=== PATIENT | female | born 1985 | race Caucasian/White ===

== ENCOUNTER → 2019-07-19 11:39 | Outpatient (CLI) | payer OTHER, SELFPAY ==
[2019-06-02 06:13] VITALS: BMI 38.2
[2019-07-19 10:42] VITALS: BMI 37.6
[2019-07-19 11:53] LABS: Mucous, Urine 0 SEEN /hpf (<or=2+); Red Blood Cells-Urine 0 SEEN /hpf (0-5)
[2019-07-19 13:42] LABS: Color, Urine Yellow (Yellow)
[2019-07-19 13:43] LABS: Glucose, Dipstick NEGATIVE (Normal); Ketone-Dipstick Negative (Negative); Leukocyte Esterase-Dipstick 25 /ul (Negative); Nitrite-Dipstick Negative (Negative); Occult Blood-Urine 10 /ul (Negative); Protein-Dipstick 15 mg/dl (Negative); Urine Bilirubin Dipstick Negative (Negative); Urine Clarity Sl Cldy (Clear); Urine Urobilinogen Normal (Normal); Urine pH 6.5 (5.0 - 8.0)
[2019-07-19 13:56] LABS: Bacteria 2+ /hpf (None Seen); Squamous Epithelial Cells - UA 5-10 SEEN /hpf (5-10); White Blood Cells 0-5 SEEN /hpf (0-5)
[2019-07-19 14:03] LABS: Erythrocyte Sedimentation Rate 21 mm/hr (0-20)
[2019-07-19 14:10] LABS: Vitamin D,25 Hydroxy 20.2 ng/mL (29.95-100.01)
[2019-07-19 14:13] LABS: T4 Free Direct 0.88 ng/dL (0.76-1.46)
== END ==
LOC: LAB.FUTURE 01-19 00:33 → BFHLAB 06-08 16:14
PROVIDERS: Family Provider Family Medicine; PCP Family Medicine; Referring Provider Family Medicine; Visit Provider Family Medicine
DX: Z00.01 Encounter for general adult medical examination with abnormal findings (principal); M32.9 Systemic lupus erythematosus, unspecified; R53.83 Other fatigue
CPT/HCPCS: 36415; 81001; 82306; 84439; 84443; 85652

== ENCOUNTER 2020-08-01 11:51 | Outpatient (RCR) | payer OTHER, SELFPAY ==
[2019-09-19 10:29] VITALS: BMI 37.6
== END 2020-08-15 23:59 ==
LOC: EMPH 11:51
PROVIDERS: PCP Family Medicine; Visit Provider Family Medicine Geriatric Medicine
DX: Z11.59 Encounter for screening for other viral diseases (principal)
CPT/HCPCS: 87635; U0003

== ENCOUNTER 2020-09-13 08:27 | Outpatient (RCR) | payer OTHER, SELFPAY ==
[2019-09-19 10:29] VITALS: BMI 37.6
== END 2020-09-15 23:59 ==
LOC: EMPH 08:27
PROVIDERS: PCP Family Medicine; Visit Provider Family Medicine Geriatric Medicine
DX: Z03.818 Encounter for observation for suspected exposure to other biological agents ruled out (principal)
CPT/HCPCS: 87426

== ENCOUNTER 2020-10-10 07:31 | Outpatient (RCR) | payer OTHER, SELFPAY ==
[2019-09-19 10:29] VITALS: BMI 37.6
== END 2020-10-15 23:59 ==
LOC: EMPH 07:31
PROVIDERS: PCP Family Medicine; Visit Provider Family Medicine Geriatric Medicine
DX: Z03.818 Encounter for observation for suspected exposure to other biological agents ruled out (principal)
CPT/HCPCS: 87426

== ENCOUNTER 2020-11-14 14:35 | Outpatient (RCR) | payer OTHER, SELFPAY ==
[2019-09-19 10:29] VITALS: BMI 37.6
== END 2020-11-15 23:59 ==
LOC: EMPH 14:35
PROVIDERS: PCP Family Medicine; Visit Provider Family Medicine Geriatric Medicine
DX: Z03.818 Encounter for observation for suspected exposure to other biological agents ruled out (principal)
CPT/HCPCS: 87426

== ENCOUNTER 2020-12-14 14:12 | Outpatient (RCR) | payer OTHER, SELFPAY ==
[2019-09-19 10:29] VITALS: BMI 37.6
== END 2020-12-16 23:59 ==
LOC: EMPH 14:12
PROVIDERS: PCP Family Medicine; Referring Provider Family Medicine Geriatric Medicine; Visit Provider Family Medicine Geriatric Medicine
DX: Z03.818 Encounter for observation for suspected exposure to other biological agents ruled out (principal)
CPT/HCPCS: 87426

== ENCOUNTER 2021-01-11 14:52 | Outpatient (RCR) | payer OTHER, SELFPAY ==
[2019-09-19 10:29] VITALS: BMI 37.6
== END 2021-01-13 23:59 ==
LOC: EMPH 14:52
PROVIDERS: PCP Family Medicine; Referring Provider Family Medicine Geriatric Medicine; Visit Provider Family Medicine Geriatric Medicine
DX: Z03.818 Encounter for observation for suspected exposure to other biological agents ruled out (principal)
CPT/HCPCS: 87426

== ENCOUNTER 2021-02-06 14:05 | Outpatient (RCR) | payer OTHER, SELFPAY ==
[2019-09-19 10:29] VITALS: BMI 37.6
== END 2021-02-13 23:59 ==
LOC: EMPH 14:05
PROVIDERS: PCP Family Medicine; Referring Provider Family Medicine Geriatric Medicine; Visit Provider Family Medicine Geriatric Medicine
DX: Z03.818 Encounter for observation for suspected exposure to other biological agents ruled out (principal)
CPT/HCPCS: 87426

== ENCOUNTER 2021-03-15 09:46 | Outpatient (RCR) | payer OTHER, SELFPAY ==
[2019-09-19 10:29] VITALS: BMI 37.6
== END 2021-03-15 23:59 ==
LOC: EMPH 09:46
PROVIDERS: PCP Family Medicine; Referring Provider Family Medicine Geriatric Medicine; Visit Provider Family Medicine Geriatric Medicine
DX: Z03.818 Encounter for observation for suspected exposure to other biological agents ruled out (principal)
CPT/HCPCS: 87426

== ENCOUNTER 2021-04-11 10:30 | Outpatient (RCR) | payer OTHER, SELFPAY ==
[2019-09-19 10:29] VITALS: BMI 37.6
== END 2021-04-15 23:59 ==
LOC: EMPH 10:30
PROVIDERS: PCP Family Medicine; Referring Provider Family Medicine Geriatric Medicine; Visit Provider Family Medicine Geriatric Medicine
DX: Z03.818 Encounter for observation for suspected exposure to other biological agents ruled out (principal)
CPT/HCPCS: 87426

== ENCOUNTER 2021-05-14 11:19 | Outpatient (RCR) | payer OTHER, SELFPAY ==
[2019-09-19 10:29] VITALS: BMI 37.6
== END 2021-05-15 23:59 ==
LOC: EMPH 11:19
PROVIDERS: PCP Family Medicine; Referring Provider Family Medicine Geriatric Medicine; Visit Provider Family Medicine Geriatric Medicine
DX: Z03.818 Encounter for observation for suspected exposure to other biological agents ruled out (principal)
CPT/HCPCS: 87426

== ENCOUNTER 2021-06-14 12:11 | Outpatient (RCR) | payer OTHER, SELFPAY ==
[2019-09-19 10:29] VITALS: BMI 37.6
== END 2021-06-15 23:59 ==
LOC: EMPH 12:11
PROVIDERS: PCP Family Medicine; Referring Provider Family Medicine Geriatric Medicine; Visit Provider Family Medicine Geriatric Medicine
DX: Z03.818 Encounter for observation for suspected exposure to other biological agents ruled out (principal)
CPT/HCPCS: 87426

== ENCOUNTER 2021-06-17 01:27 | Emergency (ER) | payer OTHER, SELFPAY ==
[2019-09-19 10:29] VITALS: BMI 37.6
[2021-06-17 01:28] VITALS: BP 122/63; PULSE 120; RESP 18; TEMP 38.8; O2SAT 98; BMI 41.7
[2021-06-17 01:30] VITALS: BP 122/63; PULSE 120; RESP 18; TEMP 38.8; O2SAT 98
[2021-06-17 03:06] VITALS: BP 122/65; PULSE 102; RESP 23; TEMP 38.4; O2SAT 93
--- NOTE | 2021-06-17 03:13 | RAD_ITS ---
STUDY: X-RAY CHEST REASON FOR EXAM: Female, 35 years old. Fever TECHNIQUE: Single AP portable view of the chest. COMPARISON: None. FINDINGS: The lungs are mildly underexpanded. There is mild atelectasis in the left lung base. There are no confluent pulmonary infiltrates. There is no demonstrated pleural abnormality. Normal size heart. Normal mediastinum and carl. Normal visualized aortic arch and descending thoracic aorta. There are no demonstrated acute fractures or destructive bone lesions. There is no demonstrated abnormality of the visualized soft tissue structures of the upper abdomen. RAD/Chest 1 View (Portable) IMPRESSION: Mild left basilar atelectasis. No evidence for acute cardiopulmonary pathology. Electronically Signed: Jann Sofia MD at 4:04 EDT , Service support ,
[2021-06-17 03:20] LABS: Absolute Lymphocyte Count 1.17 X10^3/uL (0.83-4.51); Absolute Neutrophil Count 8.8 X10^3/uL (2.0-7.7); Basophil# 0.05 X10^3/uL; Basophil% 0.5 % (0-1); Eosinophil# 0.29 X10^3/uL; Eosinophils% 2.6 % (0-5); Hematocrit 45.8 % (37-47); Hemoglobin 15.3 g/dL (12.0-15.0); Lymphocyte # 1.17 X10^3/ul (0.83-4.51); Lymphocyte % 10.6 % (19-41); Mean Corp Hgb Conc 33.4 g/dL (32-36); Mean Corpuscular Hgb 30.2 pg (27.0-32.0); Mean Corpuscular Volume 90.3 fL (81-99); Mean Platelet Vol. 10.6 fl (6.2-12.0); Monocyte# 0.65 X10^3/uL; Monocyte% 5.9 % (0-10); NRBC Flagged by Analyzer 0 % (0-5); Neutrophil % 79.6 % (47-70); Platelet Count 189 K/mm3 (150-450); RBC Distribution Width CV 13.8 % (11.6-14.6); RBC Distribution Width SD 46.2 fl (35.1-43.9); Red Blood Count 5.07 M/mm3 (4.2-5.4); White Blood Count 11.1 K/mm3 (4.4-11.0)
[2021-06-17] MEDS: Ibuprofen 600 MG Tablet PO (03:20)
[2021-06-17 03:32] LABS: ALB/GLOB Ratio 0.8 RATIO (0.9-2.4); AST(SGOT) 17 U/L (15-37); Alanine Aminotransfer ALT/SGPT 24 U/L (13-56); Albumin, Serum 3.4 g/dL (3.2-5.0); Alkaline Phosphatase 64 U/L (45-117); Anion Gap 7 (5-15); BUN 11 mg/dL (7-18); BUN/Creat Ratio 11.4 RATIO (10-20); Calcium,Total 8.3 mg/dL (8.5-10.1); Chloride 103 mmol/L (98-107); Creatinine, Serum 0.97 mg/dL (0.55-1.02); EST Glomerular Filtration Rate 70 mL/min (>60); Est Glom Filt Rate - Afr Amer 85 mL/min (>60); Estimated Creatinine Clearance 68.24 ml/min; Glucose 113 mg/dL (74-106); Potassium 3.1 mmol/L (3.5-5.1); Protein, Total 7.4 g/dL (6.4-8.2); Sodium Level 134 mmol/L (136-145)
[2021-06-17 04:00] LABS: Mucous, Urine 0 SEEN /hpf (<or=2+)
[2021-06-17 04:01] LABS: Color, Urine Yellow (Yellow); Glucose, Dipstick Normal (Normal); Ketone-Dipstick Negative (Negative); Leukocyte Esterase-Dipstick 25 /ul (Negative); Nitrite-Dipstick Negative (Negative); Occult Blood-Urine 250 /ul (Negative); Protein-Dipstick 15 mg/dl (Negative); Urine Bilirubin Dipstick Negative (Negative); Urine Clarity Clear (Clear); Urine Urobilinogen 1 mg/dl (Normal)
[2021-06-17 04:08] LABS: Bacteria 1+ /hpf (None Seen); Red Blood Cells-Urine 5-10 SEEN /hpf (0-5); Squamous Epithelial Cells - UA 5-10 SEEN /hpf (5-10); White Blood Cells 0-5 SEEN /hpf (0-5)
--- NOTE | 2021-06-17 04:27 | EX.ED.DYSGE1 ---
HPI History of Present Illness Chief Complaint: Fever Informant: patient Onset/Context/Timing Onset: Today Context: Gradual Onset Timing: Continuous Quality: Aching Location: Generalized Worsened by: Nothing Relieved by: Nothing Narrative Narrative: Patient presents with fever that began today. Patient states her temperature at home was up to 102.1. Patient admits to some generalized aching. Patient denies any nausea or vomiting. Patient denies any cough. Patient denies any dysuria or hematuria. Patient has not been vaccinated for COVID-19. Patient states she gets tested twice a week for that. Patient states all of her tests have been negative. Patient denies any exposures to COVID-19. Patient denies any chest pain or shortness of breath. PFSH PFSH no medical history Home Medications NK 06/17/21 [History Last Taken Unknown] Allergy/AdvReac Type Severity Reaction Status Date / Time No Known Allergies Allergy Verified 06/17/21 01:31 no surgical history Social History Smoking Status: Current every day smoker tobacco type: cigarettes alcohol intake: never ROS ROS ED Constitutional Constitutional ED: Reports fever(s); Denies chills Eyes Eyes: Denies blurry vision or change in vision ENT ENT ED: Denies rhinorrhea or sore throat Cardiovascular Cardiovascular: Denies chest pain or palpitations Respiratory/Chest Respiratory/Chest: Denies cough or dyspnea Gastrointestinal Gastrointestinal: Denies nausea or vomiting Genitourinary Genitourinary ED: Denies dysuria or hematuria Musculoskeletal Musculoskeletal: Reports back pain, myalgias and neck pain Integumentary Denies abscess or rash Neurologic Neurologic: Denies headache(s) or weakness Allergic/Immunologic Allergic/Immunologic ED: Denies mouth swelling or urticaria EXAM Physical Exam Const Vital Signs: 06/17/21 01:28 06/17/21 01:30 06/17/21 01:33 Temperature 101.8 F H 101.8 F H Temperature Source Oral Oral Pulse Rate 120 H 120 H Respiratory Rate 18 18 Respiratory Effort Normal Respiratory Pattern Normal Blood Pressure 122/63 H 122/63 H Blood Pressure Mean 82 82 Pulse Ox 98 98 Oxygen Delivery Method Room Air Room Air 06/17/21 03:06 06/17/21 04:42 Temperature 101.2 F H 97.8 F Temperature Source Temporal Temporal Pulse Rate 102 H 92 Respiratory Rate 23 H 17 Respiratory Effort Respiratory Pattern Blood Pressure 122/65 H 107/58 L Blood Pressure Mean 84 74 Pulse Ox 93 96 Oxygen Delivery Method Room Air Room Air Positive well nourished, well developed and obese General Appearance ED: well developed Nutritional Appearance: obese HEENT Reports moist mucous membranes Neck supple and no JVD Resp normal respiratory effort and clear to auscultation bilaterally Cardio regular rate, regular rhythm and no murmurs GI normal to inspection, nondistended, normoactive bowel sounds and non-tender Palpation: soft Extremity normal to inspection General Extremety ED: Negative for edema or tenderness General Extremity: Negative for edema Neuro oriented x3, CN's II-XII intact bilaterally and no sensory deficits noted Sensorium / Orientation: alert Motor Exam: strength 5/5 throughout Psych mental status grossly normal Skin no rashes or lesions noted MDM MDM MDM Narrative Medical decision making narrative: CBC shows a slight leukocytosis of 11.1. Comprehensive metabolic profile shows potassium of 3.1. Urinalysis does not show any evidence of urinary tract infection. Portable 1 view chest x-ray was obtained. On my interpretation, lung mims left basilar atelectasis. There is normal cardiac silhouette. Bony thorax is normal. There is no acute process noted. Radiologist also interpreted the x-ray and agrees. Patient was given a dose of potassium here. Patient was given a dose of ibuprofen. Patient's temperature improved to 97.8. Patient was advised of her findings. Patient was advised that this most likely is some other viral illness. Patient was instructed to drink plenty of fluids. Patient was instructed to continue Tylenol and ibuprofen as needed for fevers. Patient was instructed to follow-up with her primary care physician in 3 to 5 days. Patient understood and was agreeable with the plan. All questions were answered. Lab Data Attestation: I reviewed the patient's lab results. Labs: Laboratory Results - last 24 hr 06/17/21 06/17/21 06/17/21 02:01 02:01 03:48 WBC 11.1 H RBC 5.07 Hgb 15.3 H Hct 45.8 MCV 90.3 MCH 30.2 MCHC 33.4 RDW Std Deviation 46.2 H RDW Coeff of Saige 13.8 Plt Count 189 MPV 10.6 Immature Gran % (Auto) 0.800 Neut % (Auto) 79.6 H Lymph % (Auto) 10.6 L [place] % (Auto) 5.9 Eos % (Auto) 2.6 Baso % (Auto) 0.5 Absolute Neuts (auto) 8.8 H Absolute Lymphs (auto) 1.17 Nucleated RBC % 0 Sodium 134 L Potassium 3.1 L Chloride 103 Carbon Dioxide 24.0 Anion Gap 7 BUN 11 Creatinine 0.97 Estim Creat Clear Calc 68.24 Est GFR (MDRD) Af Amer 85 Est GFR (MDRD) Non-Af 70 BUN/Creatinine Ratio 11.4 Glucose 113 H Calcium 8.3 L Total Bilirubin 0.50 AST 17 ALT 24 Alkaline Phosphatase 64 Total Protein 7.4 Albumin 3.4 Globulin 4.0 Albumin/Globulin Ratio 0.8 L Urine Color Yellow Urine Clarity Clear Urine pH 6.0 Ur Specific [place] 1.010 Urine Protein 15 H Urine Glucose (UA) Normal Urine Ketones Negative Urine Occult Blood 250 H Urine Nitrite Negative Urine Bilirubin Negative Urine Urobilinogen 1 H Ur Leukocyte Esterase 25 H Urine RBC 5-10 SEEN Urine WBC 0-5 SEEN Ur Squamous Epith Cells 5-10 SEEN Urine Bacteria 1+ Urine Mucus 0 SEEN Radiography Chest X-Ray - ED: 1 View, Read by ED Physician, Read by Radiologist and Normal Diagnostic Testing: Radiology Impression Chest X-Ray 06/17/21 03:13 IMPRESSION: Mild left basilar atelectasis. No evidence for acute cardiopulmonary pathology. Electronically Signed: Jann Sofia MD at 4:04 EDT , Service support , Discharge Plan Triage Chief Complaint: Fever ED Provider: Mahad Ren Dx/Rx/DC Orders Clinical Impression: Acute febrile illness Instructions: ED FUO Adult, ED Fever Control (Adult) Prescriptions: No Action NK RF: 0 Primary Care Provider: Zeus Ojeda Referrals: Zeus Ojeda, [Primary Care Provider] - 3-5 Days Disposition Disposition: Home, Self Care Discharge Date/Time: 06/17/21 04:57
[2021-06-17 04:42] VITALS: BP 107/58; PULSE 92; RESP 16; RESP 17; TEMP 36.6; O2SAT 19; O2SAT 96
[2021-06-17] MEDS: Potassium Chloride Oral Tablet 20 MEQ 40 MEQ PO (04:54)
== END 2021-06-17 04:57 | disposition home or self-care (01) ==
PROVIDERS: Emergency Provider Emergency Medicine; PCP Family Medicine
DX: R50.9 Fever, unspecified (principal); Z20.822 Contact with and (suspected) exposure to COVID-19; F17.210 Nicotine dependence, cigarettes, uncomplicated; E66.9 Obesity, unspecified
CPT/HCPCS: 71045; 80053; 81001; 85025; 87426; 99285; A4216

== ENCOUNTER 2021-07-16 12:27 | Outpatient (RCR) | payer OTHER, SELFPAY ==
[2019-09-19 10:29] VITALS: BMI 37.6
== END 2021-07-16 23:59 ==
LOC: EMPH 12:27
PROVIDERS: PCP Family Medicine; Referring Provider Family Medicine Geriatric Medicine; Visit Provider Family Medicine Geriatric Medicine
DX: Z03.818 Encounter for observation for suspected exposure to other biological agents ruled out (principal)
CPT/HCPCS: 87426

== ENCOUNTER 2021-08-15 13:27 | Outpatient (RCR) | payer OTHER, SELFPAY ==
[2021-07-17 00:28] VITALS: BMI 41.7
== END 2021-08-15 23:59 ==
LOC: EMPH 13:27
PROVIDERS: PCP Family Medicine; Referring Provider Family Medicine Geriatric Medicine; Visit Provider Family Medicine Geriatric Medicine
DX: Z03.818 Encounter for observation for suspected exposure to other biological agents ruled out (principal)
CPT/HCPCS: 87426; 87635; U0005; U0003

== ENCOUNTER 2021-09-09 15:50 | Outpatient (RCR) | payer OTHER, SELFPAY ==
[2021-08-16 00:22] VITALS: BMI 41.7
== END 2021-09-15 23:59 ==
LOC: EMPH 15:50
PROVIDERS: PCP Family Medicine; Referring Provider Family Medicine Geriatric Medicine; Visit Provider Family Medicine Geriatric Medicine
DX: Z03.818 Encounter for observation for suspected exposure to other biological agents ruled out (principal)
CPT/HCPCS: 87426

== ENCOUNTER 2021-09-30 09:45 | Outpatient (RCR) | payer OTHER, SELFPAY ==
[2019-09-19 10:29] VITALS: BMI 37.6
--- NOTE | 2021-11-13 18:49 | MASS.DISCH ---
Massage Therapy Discharge Summary: Discharge Date: 11/13/2021 Kayce was seen for a massotherapy evaluation on 03/13/2021 with the diagnosis of back pain. She was treated with six sessions of massage therapy consisting of deep pressure soft tissue techniques, myofascial release and trigger point compression to her cervical, thoracic, lower back and hips. Kayce responded well to the therapy by reporting decreased tension and pain throughout her neck, shoulders, lower back, lower extremities and hips. Her goals for therapy were met throughout the treatment sessions. At this time this patient is being discharged from our care at [facility] facility.
== END 2021-09-30 19:00 | disposition home or self-care (01) ==
LOC: MASS 09:45
PROVIDERS: PCP Family Medicine; Referring Provider Family Medicine; Visit Provider Family Medicine
DX: M54.9 Dorsalgia, unspecified (principal)
CPT/HCPCS: 87426; 97124

== ENCOUNTER 2021-10-07 08:45 | Outpatient (RCR) | payer OTHER, SELFPAY ==
[2021-09-16 00:19] VITALS: BMI 41.7
== END 2021-10-15 23:59 ==
LOC: EMPH 08:45
PROVIDERS: PCP Family Medicine; Referring Provider Family Medicine Geriatric Medicine; Visit Provider Family Medicine Geriatric Medicine
DX: Z03.818 Encounter for observation for suspected exposure to other biological agents ruled out (principal)
CPT/HCPCS: 87426

== ENCOUNTER 2022-01-31 07:23 | Outpatient (CLI) | payer OTHER, SELFPAY ==
--- NOTE | 2022-01-31 07:33 | RAD_ITS ---
INDICATION: PAIN/?GOUT/?BUNION EXAMINATION/TECHNIQUE: X-RAY - RIGHT FOOT XR Toes Min 2 Views 3 VIEWS COMPARISON: None. FINDINGS: No acute fracture or subluxation. Minimal degenerative changes of the first MTP joint. Joint spaces are otherwise intact. Soft tissues are unremarkable. No radiopaque foreign bodies. RAD/Toe(s) Min 2 Views IMPRESSION: No acute findings. Minimal degenerative changes of the first MTP joint. Electronically Signed: Italo Rios, at 7:57 EDT ,
--- NOTE | 2022-01-31 07:33 | RAD_ITS ---
INDICATION: PAIN/SWELLING EXAMINATION/TECHNIQUE: X-RAY - LEFT XR Foot Min 3 Views 3 VIEWS COMPARISON: None. FINDINGS: No acute fracture or subluxation. Mild degenerative changes of the first MTP joint. Minimal enthesopathic changes at the apices insertion site. Mild plantar calcaneal spurring. Joint spaces are otherwise intact. Soft tissues are unremarkable. No radiopaque foreign bodies. RAD/Foot min 3 Views IMPRESSION: No acute findings. Electronically Signed: Italo Rios, at 7:56 EDT ,
[2022-01-31 17:03] LABS: Erythrocyte Sedimentation Rate 11 mm/hr (0-30)
[2022-01-31 17:28] LABS: CRP 8.71 mg/L (0.0-3.0); Uric Acid 6.2 mg/dL (2.6-6.0)
[2022-02-02 15:56] LABS: ANTINUCLEAR ANTIBODIES DIRECT Negative (Negative)
== END 2022-01-31 23:59 | disposition home or self-care (01) ==
PROVIDERS: PCP Family Medicine; Visit Provider Family Medicine
DX: M79.674 Pain in right toe(s) (principal); M32.9 Systemic lupus erythematosus, unspecified; M79.89 Other specified soft tissue disorders
CPT/HCPCS: 36415; 73630; 73660; 84550; 85652; 86038; 86140; 86225; 86235

== ENCOUNTER → 2023-01-24 | Outpatient (CLI) | payer OTHER, SELFPAY ==
--- NOTE | 2023-01-24 07:37 | RAD_ITS ---
INDICATION: LEFT SHOULDER PAIN EXAMINATION/TECHNIQUE: X-RAY - LEFT XR Shoulder Min 2 Views 4 VIEWS COMPARISON: Chest radiograph dated June 17, 2021 FINDINGS: SOFT TISSUES: No soft tissue swelling or gas. No radiopaque foreign body. BONES/JOINTS: No acute fracture or subluxation.. Normal alignment. Preservation of the joint space.. No sclerotic or destructive changes observed. RAD/Shoulder min 2 Views IMPRESSION: Within normal limits examination Electronically Signed: Jesusita Ng MD at 9:46 EST ,
== END | disposition home or self-care (01) ==
PROVIDERS: PCP Family Medicine; Visit Provider Family Medicine
DX: M25.512 Pain in left shoulder (principal)
CPT/HCPCS: 73030

== ENCOUNTER 2023-01-31 04:26 | Emergency (ER) | payer OTHER, SELFPAY ==
[2023-01-31 04:28] VITALS: BP 143/92; PULSE 111; RESP 18; TEMP 36.4; O2SAT 98; BMI 44.3
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
[2023-01-31] MEDS: Lidocaine 1% (20 ml mdv) 20 ML Vial 10 ML INFILT (05:03)
[2023-01-31 05:28] VITALS: BP 143/92; PULSE 111; RESP 15; O2SAT 98
== END 2023-01-31 05:47 | disposition home or self-care (01) ==
PROVIDERS: Emergency Provider Emergency Medicine; PCP Family Medicine; Visit Provider Emergency Medicine
DX: S61.011A Laceration without foreign body of right thumb without damage to nail, initial encounter (principal); W25.XXXA Contact with sharp glass, initial encounter; F17.210 Nicotine dependence, cigarettes, uncomplicated
CPT/HCPCS: 12002; 99284

== ENCOUNTER 2023-03-17 18:30 | Outpatient (RCR) | payer OTHER, SELFPAY ==
--- NOTE | 2023-02-05 17:34 | HP.PTEVAL ---
Patient's Visit Information MISBAH ZARAGOZA is a 37 year old F referred to Physical Therapy by Dr. Zeus Ojeda DO with a diagnosis of L shoulder pain. Date of Evaluation: 02/05/23 Physical Therapist: Mahad Ohara, DPT, OCS, CSCS - Visit Plan Frequency: 2x /Week Duration: 4-6 Weeks Plan: 2x/week for 4 weeks for. 1. manual pec stretch L and arm pull, clavicle mobs L. 2. Ensure activity modification in hammer theory. 3. teach and progress scap/postural and RC stength to I. ice as needed. - Subjective L shoulder pain pain for months, insidious but was an aid and may have been a problem. slight pain progressing to worse in top of L shoulder and back to scap. Injected last week which helped at first. No better overall. No neck problems. No arm symptoms. Worse with lifting, pulling. sleeping on L side. Sleep is not interrupted. 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 Hobbies:cleaning is worse if romeo. Basic ADLs normal. - Pain L shoulder Pain Intensity (Out of 10): 0 Pain Intensity Range: 0, 5 Comment: jarring is worse, lingers a couple minutes - Objective Forward head posture with protracted s cap and tightness apparent in pec minors B. cervical AROM WFL and without pain. Tender to touch in body o L supraspinatus, at tendon of same and onto clavicle L. reflexes 2/3 bi and tri. Sensation WNL to gross light otuch B UE. strength is 4 in L elevation flexion and er otherwise 4+, no pain with speeds or empty can. AROM B shoulder sWFL but end range of flexion and er and IR somewhat painful on L. - drop arm. - ext rotation lag test. - labral tests. - c/s compression. - sulcus - Balance/Special Test Scores Quick DASH Score: 36.3625 - Goals Goal 1:: I anagemnt including hammer theory and HEp to limit future problems Goal Time Frame: 4-6 Weeks Goal 2:: Pain 0-2/10 at allt imes and manageable Goal Time Frame: 4-6 Weeks Goal 3:: 75% improved in overall activity and work without increased pain Goal Time Frame: 4-6 Weeks Goal 4:: quickdash score 15 or better. Goal Time Frame: 4-6 Weeks - Rehabilitation Potential Physical Therapy Diagnosis: L shoulder pain likely supraspinatus in nature but inconclusive Rehabilitation Potential: Fair - Anticipated Interventions Patient/Client Instruction: Educate patient on: Condition, Plan of Care For the Purpose of:: To decrease pain, To increase ROM, To improve nutrient delivery to tissue, To improve muscle performance and motor function, To increase tolerance to activity/condition/position, To improve ability of physical actions for home/community/work/leisure Therapeutic Exercise to Include: Strength training, Flexibilty training, Passive ROM, Active ROM, Scapular Strength/Stabilization For the Purpose of:: To decrease pain, To increase ROM, To improve nutrient delivery to tissue, To increase oxygenation perfusion, To increase tolerance to activity/condition/position Manual Therapy Techniques to Include: Mobilization, Passive ROM, Soft tissue mobilization For the Purpose of:: To decrease pain, To improve nutrient delivery to tissue Thank you for the opportunity to evaluate your patient. For Medicare and Medicare HMO plans, please review the plan of care and approve it. It will need to be FAXED BACK to us at [phone] for Medicare purposes. For Medicare only, by signing this I certify the plan of care. Please let me know if there are questions or concerns regarding this plan of care. Physician Signature: Date:
--- NOTE | 2023-02-26 16:48 | HP.PTREVAL ---
Dr. Zeus Ojeda, DO, It has been my pleasure to treat MISBAH ZARAGOZA over the last 7 visits for L shoulder pain. Please see the progress note below for an update on the physical therapy plan of care! Subjective: Slowly improving . Pain is less often. Still to 6/10 with lifting beds. Doing YTB and OTB and using yellow at home. 1 set 15 one time per day.50% better. Nothing schedule with doctor. Objective/Function: Full aROM but still painful end range flexion, ir, er. Strenfgth improving but painful with flexion and er. tender over biceps tendon L shoulder. Maybe 50% better. Plan Plan: hold 2 weeks, pt to use YTB 3x15 daily and pec stretch adn ROM and f/u two weeks for d/c or continue return to doctor vs US/ionto. Balance/Gait/Functional tests - Balance/Special Test Scores Quick DASH Score: 27.2723 Goals Goal 1:: I anagemnt including hammer theory and HEp to limit future problems Goal Time Frame: 4-6 Weeks Goal Progress: Goal Met Goal 2:: Pain 0-2/10 at allt imes and manageable Goal Time Frame: 4-6 Weeks Goal Progress: Progressing Goal 3:: 75% improved in overall activity and work without increased pain Goal Time Frame: 4-6 Weeks Goal Progress: 50% Goal 4:: quickdash score 15 or better. Goal Time Frame: 4-6 Weeks Goal Progress: Progressing Anticipated Interventions Patient/Client Instruction: Educate patient on: Condition, Plan of Care For the Purpose of:: To decrease pain, To increase ROM, To improve nutrient delivery to tissue, To improve muscle performance and motor function, To increase tolerance to activity/condition/position, To improve ability of physical actions for home/community/work/leisure Therapeutic Exercise to Include: Strength training, Flexibilty training, Passive ROM, Active ROM, Scapular Strength/Stabilization For the Purpose of:: To decrease pain, To increase ROM, To improve nutrient delivery to tissue, To increase oxygenation perfusion, To increase tolerance to activity/condition/position Manual Therapy Techniques to Include: Mobilization, Passive ROM, Soft tissue mobilization For the Purpose of:: To decrease pain, To improve nutrient delivery to tissue Please do not hesitate to contact me at [phone] by phone or if you have questions or concerns regarding this new plan of care! Sincerely, Mahad Ohara, DPT, OCS, CSCS
--- NOTE | 2023-03-17 18:51 | HP.PTDCSUM ---
It has been my pleasure to treat MISBAH ZARAGOZA referred by Dr. Zeus Ojeda DO, with the diagnosis of L shoulder pain for a total of 8 visit(s). Discharge Date: 03/17/23 Please see the following information for a summary of their discharge status. Subjective: Slowly ROM getting better. Lifting pulls but not excruciating. 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 Shoulder is not keeping her up at night. Washing back still pulls during session L shoulder Pain Intensity (Out of 10): 0 % Improvement: 60 Objective/Function: Full AROM except L end range IR (l3) and flexion 150 vs 160 R. Strength is 4 er and 4+ IR and 4 flexion and abduction L shoulder still with some slight pain with LLA lifts. Goal 1:: I anagemnt including hammer theory and HEp to limit future problems Goal Progress: Goal Met Goal 2:: Pain 0-2/10 at allt imes and manageable Goal Progress: Progressing Goal 3:: 75% improved in overall activity and work without increased pain Goal Progress: 60% Goal 4:: quickdash score 15 or better. Goal Progress: slow progress Plan: d/c to HEP, pt to contact doctor if improvement stagnates or pain goes backwards. Discharge Comments: pt to continue HEP and notify doctor if pain worsens. If there are questions or concerns regarding this patient's physical therapy, please feel free to call me at [phone]. Thank you for the referral of this patient. Sincerely, Mahad Ohara, DPT, OCS, CSCS Balance/Gait/Functional tests - Balance/Special Test Scores Quick DASH Score: 25.0000
== END 2023-03-17 19:00 | disposition home or self-care (01) ==
LOC: PT 18:30
PROVIDERS: PCP Family Medicine; Referring Provider Family Medicine; Visit Provider Family Medicine
DX: M25.512 Pain in left shoulder (principal)
CPT/HCPCS: 97110; 97140; 97161; 97164; 97530

== ENCOUNTER → 2023-04-07 | Outpatient (CLI) | payer OTHER, SELFPAY ==
--- NOTE | 2023-04-07 15:48 | US_ITS ---
STUDY: ULTRASOUND OF THE FEMALE PELVIS - COMPLETE REASON FOR EXAM: Female, 37 years old. PELVIC PAIN- IRREG MENSES LMP: 03/26/2023 TECHNIQUE: Transabdominal and Transvaginal TECHNICAL QUALITY: Adequate. COMPARISON: None. FINDINGS: The uterus is anteverted and is in a midline position. The uterus measures 10.0 x 4.8 x 3.4 cm. Normal uterine cervix. Endometrial echoes measure 6 mm thick and are hyperechoic. There appears to be a 1 cm spherical echogenic structure within the endometrial cavity most consistent with endometrial polyp. There is a small amount of free fluid in the endometrial cavity. No fibroids are seen. The right ovary is visualized. The right ovary measures 4.5 x 3.3 x 3.4 cm. There is a 2 cm ovarian cyst. There is no visualized right adnexal mass or complex lesion. There is normal arterial and normal venous vascularity. The left ovary is visualized. The left ovary measures 5.0 x 3.7 x 4.1 cm. There is a 3.6 cm simple cyst. There is a tiny satellite cyst. There is no visualized left adnexal mass or complex lesion. There is normal arterial and normal venous vascularity. There is no fluid in the cul-de-sac. The pre void volume of the bladder was 371 ml. US/Pelvic w/ Transvaginal IMPRESSION: Likely endometrial polyp. Small amount of free fluid in the endometrial cavity. 2 cm right ovarian cyst. 3.6 cm left ovarian cyst. Electronically Signed: Cabrera Christiansen MD at 19:59 EDT ,
== END | disposition home or self-care (01) ==
LOC: US 15:46
PROVIDERS: PCP Family Medicine; Referring Provider Obstetrics & Gynecology; Visit Provider Obstetrics & Gynecology
DX: N89.8 Other specified noninflammatory disorders of vagina (principal); R10.2 Pelvic and perineal pain
CPT/HCPCS: 76830; 76856

== ENCOUNTER → 2023-04-17 | Outpatient (CLI) | payer OTHER, SELFPAY ==
[2023-04-17 10:41] LABS: Thyroid Stim Hormone (TSH) 2.41 uIU/mL (0.358-3.74)
== END | disposition home or self-care (01) ==
PROVIDERS: PCP Family Medicine; Referring Provider Obstetrics & Gynecology; Visit Provider Obstetrics & Gynecology
DX: N92.6 Irregular menstruation, unspecified (principal)
CPT/HCPCS: 36415; 84443

== ENCOUNTER → 2023-05-11 | Outpatient (CLI) | payer OTHER, SELFPAY ==
--- NOTE | 2023-05-11 11:20 | RAD_ITS ---
STUDY: X-RAY - LEFT SHOULDER REASON FOR EXAM: Female, 37 years old. Pain. TECHNIQUE: 4 view(s) of the shoulder. COMPARISON: Prior left shoulder x-rays dated January 24, 2023. FINDINGS: Normal glenohumeral articulation. Stable mild arthrosis of the AC joint. Normal acromion. Normal humeral head and visualized proximal humerus. Normal soft tissues. Normal visualized pulmonary apex. RAD/Shoulder min 2 Views IMPRESSION: Stable mild arthrosis of the AC joint. No acute abnormality or erosive changes. Electronically Signed: Daryn Fernando MD at 12:04 EDT ,
== END | disposition home or self-care (01) ==
LOC: MTRAD 11:16
PROVIDERS: PCP Family Medicine; Referring Provider Orthopaedic Surgery Sports Medicine; Visit Provider Orthopaedic Surgery Sports Medicine
DX: M25.512 Pain in left shoulder (principal)
CPT/HCPCS: 73030

== ENCOUNTER → 2023-05-21 | Outpatient (CLI) | payer OTHER, SELFPAY ==
--- NOTE | 2023-05-21 10:10 | MRI_ITS ---
STUDY: MRI LEFT SHOULDER REASON FOR EXAM: Female, 37 years old. Pain, rule out RC tear, DECREASED ROM, NO IMPROVEMENT WITH PT TECHNIQUE: Standardized fat and water weighted pulse sequences were obtained in all 3 orthogonal planes. COMPARISON: X-ray May 11, 2023 FINDINGS: Normal supraspinatus tendon. Normal infraspinatus tendon. Normal subscapularis tendon. Normal teres minor tendon. Normal supraspinatus muscle. Normal infraspinatus muscle. Normal subscapularis muscle. Normal teres minor muscle. Normal glenohumeral articulation. There is small joint effusion. Normal humeral head and visualized proximal humerus. Normal biceps labral complex. Normal intracapsular long biceps tendon. Normal labrum. Normal capsulo- ligamentous complex. Normal rotator interval. There is mild osteoarthritis of the acromioclavicular articulation with marrow edema of the distal clavicle and acromion. There is a Type II morphology (curved) acromion, with a neutral orientation. There is mild fluid distention of the subacromial bursa, consistent with mild subacromial-subdeltoid bursitis. Normal visualized coracohumeral and coracoacromial ligaments. Normal quadrilateral space. Normal axillary space. Normal deltoid muscle. Normal trapezius muscle. MRI/Upper Ext Joint Only(Routine) IMPRESSION: Acromioclavicular arthrosis with edema and stress fracture/injury of the clavicle and acromion versus distal clavicle osteolysis. Joint effusion. Subacromial subdeltoid bursitis. No rotator cuff tear. Electronically Signed: Jef Noel MD at 8:24 EDT ,
== END | disposition home or self-care (01) ==
LOC: MRI 10:00
PROVIDERS: PCP Family Medicine; Referring Provider Orthopaedic Surgery Sports Medicine; Visit Provider Orthopaedic Surgery Sports Medicine
DX: M25.512 Pain in left shoulder (principal)
CPT/HCPCS: 73221

== ENCOUNTER 2023-08-19 08:47 | Day surgery (SDC) | payer OTHER, SELFPAY ==
[2023-08-19] VITALS (7 sets, daily range): BP systolic 103–141; BP diastolic 58–81; PULSE 73–88; RESP 16–18; TEMP 36.2–36.7; O2SAT 89–99; BMI 43.2
[2023-08-19 09:16] LABS: Internal QC Validated? YES +Cl - CLEAR BKGD; Pregnancy, Urine Negative Negative; Record Kit Lot#,Urine Preg HCG0000667200
[2023-08-19] MEDS: Lactated Ringers 1,000 ML 15 ML IV (09:26)
--- NOTE | 2023-08-19 10:34 | PCM.HP.STD ---
HPI - General HPI Narrative MISBAH ZARAGOZA, is a 37 F who presents for left shoulder arthroscopy, subacromial decompression, distal clavicle excision. No changes to h and p. RAB and narcotic counselling. OK to proceed with surgery and pre op block. Left shoulder marked. MR#: [id number] Acct: [id number] Name: MISBAH ZARAGOZA Rep #: [id number] : 1985 Provider: Dr. Sergey Barron MD Age/Sex: 37/F Location: [facility] [place] Status: Signed Intake Vital Signs 05/11/2310:29 Height 5 ft 3 in Weight: 248 lb BMI 43.9 Intake Visit Reasons: LEFT SHOULDER Chief Complaint: left shoulder Accompanied by: Self Is patient in pain?: Yes Pain scale (1-10): 5 Allergies No Known Allergies Allergy (Verified 05/11/23 10:29) Medications ibuprofen 200 mg tablet 200 mg PO Q6H PRN 05/11/23 [History Confirmed 06/04/23] citalopram 20 mg tablet mg PO 06/04/23 [History Confirmed 06/04/23] medroxyprogesterone 10 mg tablet mg PO 06/04/23 [History Confirmed 06/04/23] rosuvastatin 10 mg tablet 10 mg PO 06/04/23 [History Confirmed 06/04/23] PFSH Medical History Arthrosis of left acromioclavicular joint Impingement of left shoulder Left shoulder pain Surgical History History of tonsillectomy Social History Smoking Status: Current every day smoker tobacco type: cigarettes alcohol intake: never HPI LEFT SHOULDER Details: Parts of this documentation were recorded by a scribe, this documentation accurately reflects the service provided and the decisions made by me, Dr. Sergey Barron MD 06/04/23 1049. MISBAH ZARAGOZA is a 37 year old F here today for FU L shoulder MRJameson Still bothering her, lateral side and superior aspect. worse with reaching across the body and with more activity. did 6 weeks of PT with little effect. Ortho Exam General General: Yes no acute distress Neurologic: Yes alert and Yes oriented x3 Psychologic: Yes reasonable and appropriate Left Shoulder Skin/Wound: Yes CDI, No ecchymosis, No erythema and No swelling Testing: Yes Hawkin's, Yes Neer's, No Speed's, Yes TTP Biceps, Yes TTP AC Joint, No Drop Arm, Yes AROM-Forward Elevation 0-180, Yes PROM-Forward Elevation 0-180, No Apprehension Test, No Sulcus Sign, Yes empty can, Yes cross arm and Yes belly press normal Internal Rotation: L3 SHOULDER: normal motor and sens ax, mru and ain/pin, 2+ rad pulse. Supplemental Info [facility] Imaging Services [address] [place] [address] Upper Ext Joint Only(Routine) MR#: [id number] Acct: [id number] Name: MISBAH ZARAGOZA Rep #: [id number] : 1985 F 37 From: Jef Noel MD PCP: Dr. Zeus Ojeda, DO Status: REG CLI Study: Upper Ext Joint Only(Routine) Date of Exam: 05/21/23 Exam# [id number] Ordering Dr: Sergey Barron MD STUDY: MRI LEFT SHOULDER REASON FOR EXAM: Female, 37 years old. Pain, rule out RC tear, DECREASED ROM, NO IMPROVEMENT WITH PT TECHNIQUE: Standardized fat and water weighted pulse sequences were obtained in all 3 orthogonal planes. COMPARISON: X-ray May 11, 2023 FINDINGS: Normal supraspinatus tendon. Normal infraspinatus tendon. Normal subscapularis tendon. Normal teres minor tendon. Normal supraspinatus muscle. Normal infraspinatus muscle. Normal subscapularis muscle. Normal teres minor muscle. Normal glenohumeral articulation. There is small joint effusion. Normal humeral head and visualized proximal humerus. Normal biceps labral complex. Normal intracapsular long biceps tendon. Normal labrum. Normal capsulo- ligamentous complex. Normal rotator interval. There is mild osteoarthritis of the acromioclavicular articulation with marrow edema of the distal clavicle and acromion. There is a Type II morphology (curved) acromion, with a neutral orientation. There is mild fluid distention of the subacromial bursa, consistent with mild subacromial-subdeltoid bursitis. Normal visualized coracohumeral and coracoacromial ligaments. Normal quadrilateral space. Normal axillary space. Normal deltoid muscle. Normal trapezius muscle. MRI/Upper Ext Joint Only(Routine) IMPRESSION: Acromioclavicular arthrosis with edema and stress fracture/injury of the clavicle and acromion versus distal clavicle osteolysis. Joint effusion. Subacromial subdeltoid bursitis. No rotator cuff tear. Electronically Signed: Jef Noel MD at 8:24 EDT , Coding Level of Care Code Off vis,est,level 4 Diagnoses Left shoulder pain M25.512 Arthrosis of left acromioclavicular joint M19.012 Impingement of left shoulder M25.812 Assessment and Plan Assessment and Plan (1) Left shoulder pain: Status: Acute Plan: 37-year-old female with left shoulder pain MRI findings of AC joint arthrosis edema at the distal clavicle and downsloping type II acromion with no rotator cuff tear. Her options include were discussed not limited to rest ice anti-inflammatories activity modification did have physical therapy could try subacromial steroid injection. Surgical option risks and benefits pros and cons discussed for left shoulder arthroscopy, subacromial decompression, distal clavicle excision. Specific surgical risks with this operation would be instability of the AC joint. Other risks discussed she is a smoker that would increase the risks of infection and other complications associated with the surgery. 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 She would like to go ahead with surgery she also apparently has lupus not on any medications for that as well as hydrocephalus so we will get a preoperative clearance from her family doctor. She understands no further questions or concerns. Pros and cons risks and benefits were discussed with the patient including but not limited to infection, pain, stiffness, bleeding, damage to surrounding structures, neurovascular injury, recurrence or retear, failure or wear of hardware or fixation, instability, fracture, deep vein thrombosis and pulmonary embolism, anesthetic risks, , patient dissatisfaction, need for further surgery and other risks. Patient understood and wished to proceed with surgery, and signed the informed consent documentation. (2) Arthrosis of left acromioclavicular joint: Status: Acute (3) Impingement of left shoulder: [facility] Medical History Anxiety Arthrosis of left acromioclavicular joint High cholesterol Impingement of left shoulder Left shoulder pain Migraine headache Shortness of breath on exertion Smoker Home Medications ibuprofen 200 mg tablet 200 mg PO Q6H PRN pain 05/11/23 [History Last Taken Unknown] rosuvastatin 10 mg tablet 10 mg PO .[id number] 06/04/23 [History Last Taken Unknown] loratadine 10 mg tablet (Claritin) 10 mg PO PRN ALLERGIES 08/12/23 [History Last Taken Unknown] Allergy/AdvReac Type Severity Reaction Status Date / Time No Known Allergies Allergy Verified 08/19/23 09:19 Surgical History (Updated 08/12/23 @ 09:10 by Venessa Enriquez) History of tonsillectomy Hx of surgical procedure Social History Smoking Status: Current every day smoker tobacco type: cigarettes alcohol intake: never Vital Signs Vital Signs Vital Signs: 08/19/23 09:20 08/19/23 09:20 Temperature 97.8 F Temperature Source Temporal Pulse Rate 86 Respiratory Rate 18 Respiratory Pattern Normal Blood Pressure 141/76 H Blood Pressure Mean 97 Blood Pressure Source Monitor Blood Pressure Position Sitting Blood Pressure Location Right Arm Pulse Ox 98 Oxygen Delivery Method Room Air Weight Weight: 243 lb 13.3 oz Body Mass Index (BMI) 43.2 Results Lab / Micro Data Labs: Laboratory Results - last 24 hr 08/19/23 09:04: Urine Test Negative
[2023-08-19] MEDS: Cefazolin 2 GM in 0.9% Normal Saline (100mL Bag) 100 ML IV (11:13)
[2023-08-19] MEDS: Epinephrine (1 mg/ml) 1 MG/ML VIAL (11:45)
--- NOTE | 2023-08-19 12:37 | OP.PCM_ITS ---
Problems Associated Problem List Diagnoses (1) Arthrosis of left acromioclavicular joint: (2) Impingement of left shoulder: (3) Left shoulder pain: Report of Operation Date of Procedure: 08/19/23 Pre-Operative Diagnosis: L shoulder ACJ arthrosis and impingement / bursitis Post-Operative Diagnosis: same Surgery/Procedure Performed:: L shoulder arthroscopy, subacromial decompression, distal clavicle excision Surgeon: Sergey Barron Type of Anesthesia: Block,Regional and General Anesthesiologist: Saeid Shannon Estimated Blood Loss (mL): 50 Description of Procedure: Patient brought to the operating theater. Placed supine on the table. General anesthesia induced. Transferred left side up lateral decubitus beanbag positioner. Axillary roll used. All bony prominences padded SCDs on the legs. 2 g IV Ancef administered prior to the start of the procedure. Upper extremity prepped and draped in the usual sterile fashion with chlorhexidine-based prep solution allowing over 3 minutes drying time prior to draping. Arm in 45 degrees abduction with 10 pounds of traction. Preoperative timeout performed to confirm the site patient and the surgery. Began by inserting the arthroscope into the intra-articular portion of the shoulder. Did a diagnostic arthroscopy. No loose bodies. Made anterior portal inside out spinal needle localization through the rotator interval just posterior to the biceps. Cartilage on the glenoid and humeral head appeared normal. Slight fraying of the anterior superior labrum at the 2 o'clock position gently debrided. Biceps root and biceps itself was stable and solid no synovitis. No tendon tears on the undersurface the rotator cuff tendon. Subsc apularis appeared normal normal lever push no fraying. I then inserted the arthroscope into the subacromial space. There is a moderate to large amount of inflammatory bursitis. I removed this created a lateral portal used a shaving instrument to remove the bursa down to the lateral gutters. Identified the CA ligament. Released this from the undersurface of the acromion. Did a subacromial decompression with a arthur high-speed instrument to flat margins for approximately 4 mm. Slight downsloping corrected. I then identified the distal end of the clavicle at the AC joint. I did a distal cl avicle excision for a width of 5 mm. I did this to flat margins. I inserted the arthroscope through the anterior portal to confirm this and took arthroscopy pictures throughout the case and saved them onto the system. Probed the whole cuff, no tears. Shoulder thoroughly irrigated. Case terminated. Portals closed with 3-0 Monocryl. Skin cleaned with wet and dry dressing followed by application of Steri-Strips Adaptic 4 x 4 gauze ABD dressing and cloth tape with a sling for the upper extremity. Patient woken up from the general anesthetic transferred off the operating table and taken to postanesthetic care unit in stable condition. All sponge needle instrument counts were correct [place] [address] [place] [address] Complications none Admit VTE Documentation VTE Present on Admission: No VTE Mechan Device Prophylaxis: SCD's VTE Pharm Prophylaxis ordered?: No Reason prophylaxis not ordered:: Treatment Not Indicated Procedures Musculoskeletal [id number]: Other Procedure See Report
--- NOTE | 2023-08-19 12:48 | DCINST_ITS ---
Discharge Instructions Diet Discharge Diet: No restrictions Activity Ice area for (Minutes): 10 Lifting Restrictions: no heavy lifting Additional Activity Instructions:: ok to remove sling for pendulums, hand wrist elbow rom 4 x/ day Dressing / Incision Call your doctor if your incision/area has: Continuous Slow Oozing, Sudden Increased Bleeding, Increased Pain/ Swelling, Increased Redness, Foul Smelling Discharge and Swelling at the incision site Remove Dressing in: leave in place till F/U Cleanse incision/area with: Do not get Incision Wet Follow Up Care Please Follow Up With: Sergey Barron MD When: 2 days Test Results: Test results from this visit will be discussed in further detail at your follow- up appointment, if applicable. Discharge Plan Admission Attending Provider: Sergey Barron Primary Care Provider: Zeus Ojeda Discharge Orders/Prescriptions Prescriptions: New oxycodone-acetaminophen [Percocet] 5-325 mg tablet 1 tab PO Q6H MDD 6 PRN (Reason: pain) 5 Days Qty: 30 0RF No Action ibuprofen 200 mg tablet 200 mg PO Q6H PRN (Reason: pain) rosuvastatin 10 mg tablet 10 mg PO .[id number] Patient Comments: TAKES WHEN SHE REMEMBERS loratadine [Claritin] 10 mg tablet 10 mg PO PRN Referrals / Follow Up: Zeus Ojeda DO [Primary Care Provider] - Disposition Disposition (needs filled in before D/C Order can be placed): Home, Self Care
== END 2023-08-19 14:54 | disposition home or self-care (01) ==
LOC: SDC 08:47 → AC 08:49
PROVIDERS: Anesthesiology; PCP Family Medicine; Referring Provider Orthopaedic Surgery Sports Medicine; Visit Provider Orthopaedic Surgery Sports Medicine
PROC: (CPT 29805; principal; 2023-08-19 10:40)
DX: M19.012 Primary osteoarthritis, left shoulder (principal); M25.812 Other specified joint disorders, left shoulder; M75.52 Bursitis of left shoulder; E78.00 Pure hypercholesterolemia, unspecified; F17.210 Nicotine dependence, cigarettes, uncomplicated; Z79.899 Other long term (current) drug therapy; Z79.1 Long term (current) use of non-steroidal anti-inflammatories (NSAID)
CPT/HCPCS: 29826; 29824; 64415; 01630; 81025; J7120; J2405

== ENCOUNTER 2023-09-28 08:00 | Outpatient (RCR) | payer OTHER, SELFPAY ==
--- NOTE | 2023-08-27 12:18 | HP.PTEVAL ---
Patient's Visit Information Visit Information Visit Information: MISBAH ZARAGOZA is a 37 year old F referred to Physical Therapy by Dr. Sergey Barron MD with a diagnosis of OTHER SPECIFIED JOINT ,LEFT SHOULDER. Date of Evaluation: 08/27/23 Physical Therapist: Clayton Menendez, PT, Cert MDT, OCS Visit Plan Frequency: 2x /Week Duration: 6 Weeks Plan: s/p s/p shoulder arthroscopy, subacromial decompression, distal clavicle excision Aug 19 sling 2weeks RTD 09/01 PT INTERVETIONS PROM/AAROM ,MANUAL THERAPY FOR 2WEEKS PROGRESSING STRENGTHENING EX'S RTC /SCAPULAR PER MD AND CHP Subjective Subjective: This 37 y/o female presents to physical therapy with left s/p shoulder arthroscopy, subacromial decompression, distal clavicle excision on Aug 19 at [facility] by Dr Barron. Patient was d/c same DOS with sling. Patient seen 08/21/23 start PT with gentle ROM . Patient return to Sep 01. Patient had shoulder pain for several months which progressively. Tried PT ~ 6weeks ,cortisone injections and had severe bursitis. Patient had MRI and x-rays- . Patient denies paresthesia/tingling. Patient has stiffness . Patient has limitations with all ADLS housework and self hygiene activities above 90 degrees .. Patient has difficulty sleeping. Patient goals to RTW and no pain and back to function. Patient condition affects QOL and RTW. 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 Pain Left Shoulder: Pain Intensity (Out of 10): 4 Pain Intensity Range: 10 Objective Objective: POSTURE: mild forward posture PALAPTION: mild tender AC NEURO: denies paresthesia/tingling SKIN: incision well approximate PROM: left shoulder flexion 150 degrees ,abduction in scapation 150 degrees ,ER 90 degrees ACTIVE elbow flexion /wrist WNL MMT: shoulder NT Balance/Special Test Scores Quick DASH Score: 50.0000 Goals Goal 1:: I with HEP for shoulder Goal Time Frame: 6-8 Weeks Goal 2:: Patient to improve AROM shoulder flexion/abduction to 150 degrees and T11 IR for ADL/housework and RTW Goal Time Frame: 6-8 Weeks Goal 3:: Patient to increase peak force RTC/deltoid by 20# strength to RTW Goal Time Frame: 6-8 Weeks Goal 4:: Patient to demonstrated 75% improvement with function and no pain and RTW Goal Time Frame: 6-8 Weeks Goal 5:: Patient to improve quick dash 5-10 points to improve QOL and function Goal Time Frame: 6-8 Weeks Rehabilitation Potential Physical Therapy Diagnosis: This patient underwent left s/p shoulder arthroscopy, subacromial decompression, distal clavicle excision with some pain decrease ROM and strength for functional activities for RTW and housework tasks thus benefit from skilled PT Rehabilitation Potential: Good Anticipated Interventions Patient/Client Instruction: Educate patient on: Condition and Plan of Care For the Purpose of:: To decrease pain, To increase ROM, To improve muscle performance and motor function, To increase tolerance to activity/condition/position, To improve ability of physical actions for home/community/work/leisure, To improve health of tissue, To decrease soft tissue restriction, To increase flexibility/ROM, To improve tolerance to ADL's and Other Other: RTW Therapeutic Exercise to Include: Strength training, Flexibilty training, Passive ROM, Active ROM and Scapular Strength/Stabilization Comment: RTC For the Purpose of:: To decrease pain, To increase ROM, To improve muscle performance and motor function, To improve ability to perform ADL's, To increase tolerance to activity/condition/position, To improve performance and independence with ADL's, To improve health of tissue, To decrease soft tissue restriction, To increase flexibility/ROM, To prevent re-injury and To improve tolerance to ADL's Cryotherapy (ice pack, ice massage): Yes Thermo therapy (hot pack): Yes For the Purpose of:: To decrease pain, To increase ROM, To improve health of tissue and To decrease soft tissue restriction Text: Thank you for the opportunity to evaluate your patient. For Medicare and Medicare HMO plans, please review the plan of care and approve it. It will need to be FAXED BACK to us at [phone] for Medicare purposes. For Medicare only, by signing this I certify the plan of care. Please let me know if there are questions or concerns regarding this plan of care. Physician Signature: Date:
--- NOTE | 2024-02-26 12:25 | HP.PT.NRP ---
Patient Information Patient Information: MISBAH ZARAGOZA was seen in my office for initial evaluation on 08/27/23. The following Plan of Care was established for this patient: POC Established Initial Frequency: 2x /Week Initial Duration: 6 Weeks Anticipated Interventions Patient/Client Instruction: Educate patient on: Condition and Plan of Care For the Purpose of:: To decrease pain, To increase ROM, To improve muscle performance and motor function, To increase tolerance to activity/condition/position, To improve ability of physical actions for home/community/work/leisure, To improve health of tissue, To decrease soft tissue restriction, To increase flexibility/ROM, To improve tolerance to ADL's and Other Other: RTW Therapeutic Exercise to Include: Strength training, Flexibilty training, Passive ROM, Active ROM and Scapular Strength/Stabilization For the Purpose of:: To decrease pain, To increase ROM, To improve muscle performance and motor function, To improve ability to perform ADL's, To increase tolerance to activity/condition/position, To improve performance and independence with ADL's, To improve health of tissue, To decrease soft tissue restriction, To increase flexibility/ROM, To prevent re-injury and To improve tolerance to ADL's Cryotherapy (ice pack, ice massage): Yes Thermo therapy (hot pack): Yes For the Purpose of:: To decrease pain, To increase ROM, To improve health of tissue and To decrease soft tissue restriction Last Seen Last Seen: This patient was last seen in our office . Pertinent comments regarding their Physical therapy will appear below: Patient seen for PT evaluation with 9 visits for shoulder surgery arthroscopy At this point I will be discontinuing this patient from physical therapy. I would be happy to see this patient again in the future if found appropriate by the physician. Thank you! Clayton Menendez, PT, Cert MDT, OCS Balance/Gait/Functional tests Balance/Special Test Scores Quick DASH Score: 13.6364
== END 2023-09-28 19:00 | disposition home or self-care (01) ==
LOC: PT 08:00
PROVIDERS: PCP Family Medicine; Referring Provider Orthopaedic Surgery Sports Medicine; Visit Provider Orthopaedic Surgery Sports Medicine
DX: M25.812 Other specified joint disorders, left shoulder (principal)
CPT/HCPCS: 97110; 97140; 97162; 97530

== ENCOUNTER → 2024-03-08 | Outpatient (CLI) | payer OTHER, SELFPAY | END | disposition home or self-care (01) | LOC: SL 11:14 | PROVIDERS: PCP Family Medicine; Referring Provider Family Medicine; Visit Provider Family Medicine | DX: G47.10 Hypersomnia, unspecified (principal); R06.83 Snoring | CPT/HCPCS: 95806 ==

== ENCOUNTER → 2024-03-22 | Outpatient (CLI) | payer OTHER, SELFPAY | END | disposition home or self-care (01) | LOC: SL 12:59 | PROVIDERS: PCP Family Medicine; Visit Provider Family Medicine | DX: Z00.00 Encounter for general adult medical examination without abnormal findings (principal) ==

== ENCOUNTER → 2024-03-25 | Outpatient (CLI) | payer OTHER, SELFPAY ==
[2024-03-25 09:10] LABS: Estradiol 179.4 pg/mL; T4 Free Direct 0.88 ng/dL (0.76-1.46)
[2024-03-25 10:09] LABS: Hemoglobin A1c 5.6 % (3.8-5.6)
== END | disposition home or self-care (01) ==
LOC: LAB 07:48
PROVIDERS: PCP Family Medicine; Referring Provider Family Medicine; Visit Provider Family Medicine
DX: R53.83 Other fatigue (principal); E34.9 Endocrine disorder, unspecified; L65.9 Nonscarring hair loss, unspecified
CPT/HCPCS: 82533; 82627; 82670; 83036; 84403; 84439; 84443; 82626

== ENCOUNTER → 2024-04-13 | Outpatient (CLI) | payer OTHER, SELFPAY ==
[2024-04-14 04:07] LABS: PROGESTERONE 0.2 ng/mL (.)
== END | disposition home or self-care (01) ==
LOC: LAB 07:54
PROVIDERS: PCP Family Medicine; Referring Provider Family Medicine; Visit Provider Family Medicine
DX: E34.9 Endocrine disorder, unspecified (principal)
CPT/HCPCS: 36415; 82533; 84144

== ENCOUNTER → 2024-06-15 | Outpatient (CLI) | payer OTHER, SELFPAY ==
--- NOTE | 2024-06-15 07:10 | RAD_ITS ---
INDICATION: Sciatica, left side EXAMINATION/TECHNIQUE: X-RAY - XR Hips Bilateral with Pelvis when performed; 2 Views COMPARISON: No relevant prior comparison study available FINDINGS: PELVIC BONES: No displaced fracture, destructive or sclerotic lesions. Note that overlapping bowel shadows may however obscure fine detail. Sacroiliac joints are unremarkable. No widening of the pubic symphysis. HIPS: The articular structures are unremarkable. No displaced fracture seen in this frontal view. Mild marginal osteophyte formation from the roof of the acetabula bilaterally. SOFT TISSUES: No soft tissue swelling or gas. RAD/Hips B/L min 2 views w/ Pelvis IMPRESSION: 1. No evidence of displaced pelvic or hip fracture. 2. Pelvic ring is intact. 3. Mild osteophyte formation from the roof of the acetabula bilaterally. Electronically Signed: William Alcala MD at 1:03 EDT ,
--- NOTE | 2024-06-15 07:10 | RAD_ITS ---
STUDY: X-RAY - LUMBAR SPINE REASON FOR EXAM: Female, 38 years old. Sciatica, left side TECHNIQUE: INDICATION: Sciatica, left side EXAMINATION/TECHNIQUE: X-RAY - XR Spine Lumbar Min 4 Views COMPARISON: None. FINDINGS: VERTEBRAE: Vertebral body height is maintained. No evidence of fracture or subluxation. There is a minimal dextroscoliotic curvature at the thoracolumbar junction. Minimal marginal osteophyte formation is present. No fracture. No spondylolisthesis. Preservation of the normal lumbar lordosis. Mild facet DISCS: Disc spaces are maintained. There is a subtle retrolisthesis of L5 on S1. INCLUDED ABDOMEN: Included bowel gas pattern is non-obstructive. RAD/L/S Spine Min 4 Views IMPRESSION: 1. No evidence of fracture or destructive marrow replacement process. 2. Mild retrolisthesis of L5 on S1. 3. Disc spaces are maintained. Electronically Signed: William Alcala MD at 1:02 EDT ,
== END | disposition home or self-care (01) ==
LOC: RAD 07:06
PROVIDERS: PCP Family Medicine; Referring Provider Nurse Practitioner Family; Visit Provider Nurse Practitioner Family
DX: M54.32 Sciatica, left side (principal)
CPT/HCPCS: 72110; 73521

== ENCOUNTER 2024-08-04 16:00 | Outpatient (RCR) | payer OTHER, SELFPAY ==
--- NOTE | 2024-07-08 13:00 | HP.PTEVAL ---
Patient's Visit Information Visit Information Visit Information: MISBAH ZARAGOZA is a 38 year old F referred to Physical Therapy by Dr. Zeus Ojeda DO with a diagnosis of L sciatica. Date of Evaluation: 07/08/24 Physical Therapist: Kristopher Tate, PT, ATC Visit Plan Frequency: 2x /Week Duration: 4-6 Weeks Plan: Postural edu, SKTC/DKTC, core stab ex's, and HEP Subjective Subjective: Pt reports she has had LBP and sciatica for a couple months now. Pt reports this pain has progressively worsened over this time span. Pt reports she has had this pain in the past as well, but it has never been this bad before. Pt reports this episode had an insidious onset in nature. Pt reports her Pain extends down her L LE all the way to her foot. Pt reports her L foot is constantly numb. Pt reports the more she walks while at work, the more her L LE cruz. 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 Pt reports she has had xrays which revealed some degenerative changes in the L/S. Pt reports no sleep difficulty secondary to pain. Pt reports 0/10 pain while sitting here in the clinic, and notes it elevates to 6/10 at worst. Pain LBP: Pain Intensity (Out of 10): 0 Pain Intensity Range: 6 Objective Objective: Neuro: L LE is hyposensitive to light touch throughout. R LE sensation is WNL throughout with light touch. B patellar reflex= 2/3 MMT: B LE's are strong and equal when compared bilaterally ROM: Pt is minimally limited with L SB and extension of the L/S. All other motions are WNL Repeated movements: RFIS 10x3 NE. ALEXANDER 10x2 peripheralized sx's into L gastroc region. SKTC/DKTC decreased LE tingling Balance/Special Test Scores Oswestry Low Back Score: 14 Goals Goal 1:: Decrease the frequency and intensity of L LE radiculopathy x 50% to aid with ambulation Goal Time Frame: 4-6 Weeks Goal 2:: Increase L/S ROM to WNL in all planes to aid with restoring proper posture Goal Time Frame: 4-6 Weeks Goal 3:: Pt will be able to work for 8 hours without experiencing increased LE radiculopathy Goal Time Frame: 4-6 Weeks Goal 4:: I with HEP Goal Time Frame: 4-6 Weeks Rehabilitation Potential Physical Therapy Diagnosis: Pt has LBP, L LE sciatica, and difficulty with ambulation secondary to deg. changes in L/S Rehabilitation Potential: Good Anticipated Interventions Patient/Client Instruction: Educate patient on: Condition and Plan of Care For the Purpose of:: To improve self management Therapeutic Exercise to Include: Strength training, Body mechanics, Postural training and Dynamic Lumbar Stabilization For the Purpose of:: To decrease pain, To increase ROM and To improve muscle performance and motor function Text: Thank you for the opportunity to evaluate your patient. For Medicare and Medicare HMO plans, please review the plan of care and approve it. It will need to be FAXED BACK to us at [phone] for Medicare purposes. For Medicare only, by signing this I certify the plan of care. Please let me know if there are questions or concerns regarding this plan of care. Physician Signature: Date:
--- NOTE | 2024-08-04 16:28 | HP.PTDCSUM ---
Discharge Summary D/C summary: It has been my pleasure to treat MISBAH ZARAGOZA referred by Dr. Zeus Ojeda DO, with the diagnosis of L sciatica for a total of 9 visit(s). Discharge Date: Please see the following information for a summary of their discharge status. Subjective Subjective: My pain is much better, but my left leg is still numb Pain LBP: Pain Intensity (Out of 10): 0 Overall Improvement % Improvement: 40 Objective Objective/Function: 0/10 LBP L LE radiculopathy is unchanged Pt is not able to work for greater than 30 minutes without L LE burning Pt is I with HEP Pt is not progressing well at this time secondary to L LE radiculopathy Goals Goal 1:: Decrease the frequency and intensity of L LE radiculopathy x 50% to aid with ambulation Goal Progress: Not Progressing Goal 2:: Increase L/S ROM to WNL in all planes to aid with restoring proper posture Goal Progress: Goal Met Goal 3:: Pt will be able to work for 8 hours without experiencing increased LE radiculopathy Goal Progress: Not Progressing Goal 4:: I with HEP Goal Progress: Goal Met Plan Plan: Discontinue, return to doctor secondary to lack of progress D/C Information d/c sentence: If there are questions or concerns regarding this patient's physical therapy, please feel free to call me at [phone]. Thank you for the referral of this patient. Sincerely, Kristopher Tate, PT, ATC Balance/Gait/Functional tests Balance/Special Test Scores Oswestry Low Back Score: 13 Improvement % Improvement: 40
== END 2024-08-04 19:00 | disposition home or self-care (01) ==
LOC: PT 16:00
PROVIDERS: PCP Family Medicine; Referring Provider Family Medicine; Visit Provider Family Medicine
DX: M54.32 Sciatica, left side (principal)
CPT/HCPCS: 97110; 97161; 97530

== ENCOUNTER → 2024-08-30 | Outpatient (CLI) | payer OTHER, SELFPAY ==
--- NOTE | 2024-08-30 15:16 | MRI_ITS ---
STUDY: MRI LUMBAR SPINE WITHOUT CONTRAST REASON FOR EXAM: Female, 38 years old. Left lower back pain with numbness and tingling. Persistent left lumbar radiculopathy. TECHNIQUE: Standardized fat and water weighted pulse sequences were obtained in the sagittal and axial planes. COMPARISON: None FINDINGS: T9-T10, T10-T11, T11-T12 and T12-L1: (Sagittal only). Normal endplates. Normal disc height, hydration and morphology. No ventral extradural defects. Normal central canal and bilateral lateral recesses. Normal bilateral intervertebral neural foramina. Normal lumbar lordosis. There is no substantial scoliosis. Normal conus medullaris that terminates at the lower T12 vertebral body level. L1-2: Normal endplates. Normal disc height, hydration and morphology. Normal bilateral facet joints. Normal central canal and bilateral lateral recesses. Normal bilateral intervertebral neural foramina. L2-3: Normal endplates. Normal disc height, hydration and morphology. Normal facet joints. Mild central canal stenosis with an AP canal diameter of 10 mm surrounded by epidural lipomatosis. Normal bilateral lateral recesses. Normal bilateral intervertebral neuroforamina. L3-4: Normal endplates. Normal disc height, hydration and morphology. Normal facet joints. Moderate central canal stenosis with an AP canal diameter 7 mm surrounded by epidural lipomatosis. Normal bilateral lateral recesses. Normal bilateral intervertebral neuroforamina. L4-5: Normal endplates. Normal disc height. Mild loss of disc hydration. Normal facet joints. Moderate central canal stenosis with an AP canal diameter of 7 mm surrounded by epidural lipomatosis. Normal bilateral lateral recesses. Normal bilateral intervertebral neuroforamina. L5-S1: Mild Modic type I tear intervertebral marrow edema underneath the vertebral endplates. Mild disc space height narrowing. Prominent left posterior disc extrusion causing left lateral recess stenosis and posterior displacement of the left S1 nerve root sleeve normal facet joints. Normal tapered termination thecal sac at the caudal aspect of the L5-S1 disc space level. Normal right lateral recess. Normal bilateral intervertebral neuroforamina. Normal visualized sacral ala. Normal visualized paraspinous soft tissue structures. MRI/Spine Lumbar (Routine) IMPRESSION: 1. Prominent left L5-S1 posterior disc extrusion causing left lateral recess stenosis and posterior displacement of the left S1 nerve root sleeve and mild L5-S1 intervertebral osteochondritis (Modic type I). 2. Moderate central canal stenosis with identical AP canal diameters of 7 mm surrounded by epidural lipomatosis at L3-L4 and L4-L5 disc space levels. 3. Mild central canal stenosis at L2-L3 disc space level with an AP canal diameter of 10 mm surrounded by epidural lipomatosis. Electronically Signed: Cosme Quigley MD at 10:27 EDT ,
== END | disposition home or self-care (01) ==
LOC: MRI 15:00
PROVIDERS: PCP Family Medicine; Referring Provider Family Medicine; Visit Provider Family Medicine
DX: M54.17 Radiculopathy, lumbosacral region (principal)
CPT/HCPCS: 72148

== ENCOUNTER → 2024-11-26 | Outpatient (CLI) | payer OTHER, SELFPAY ==
--- NOTE | 2024-11-26 10:01 | US_ITS ---
INDICATION: PELVIC PAIN EXAMINATION: Ultrasound US Pelvis Non-OB Complete TECHNIQUE: Transabdominal and transvaginal pelvic ultrasound was performed. Grayscale, spectral waveform, and color flow Doppler evaluation of the adnexa. COMPARISON: April 07, 2023 FINDINGS: UTERUS: The uterus measures 9.1 x 3.3 x 5.4 cm. There is no uterine mass. The endometrial stripe measures 8.0 mm in AP diameter which is within normal limits. RIGHT OVARY: 3.5 x 1.6 x 2.0 cm. Non-enlarged, normal echogenicity. There is normal arterial inflow and venous outflow present in the right ovary. LEFT OVARY: 3.4 x 1.9 x 2.5 cm. Non-enlarged, normal echogenicity. There is normal arterial inflow and venous outflow present in the left ovary. FREE FLUID: None. The urinary bladder is incompletely distended with a volume of 131.5 mL. No acute abnormalities are visualized. US/Pelvic (Non ) IMPRESSION: Within normal limits pelvic ultrasound. Electronically Signed: Jesusita Ng MD at 10:29 EST ,
== END | disposition home or self-care (01) ==
LOC: US 09:52
PROVIDERS: PCP Family Medicine; Visit Provider Obstetrics & Gynecology
DX: R10.2 Pelvic and perineal pain (principal); N92.0 Excessive and frequent menstruation with regular cycle
CPT/HCPCS: 76856

== ENCOUNTER 2024-12-12 08:26 | Outpatient (RCR) | payer OTHER, SELFPAY | END 2024-12-16 23:59 | LOC: NS 08:26 | PROVIDERS: PCP Family Medicine; Referring Provider Obstetrics & Gynecology; Visit Provider Obstetrics & Gynecology | DX: Z71.3 Dietary counseling and surveillance (principal); E66.01 Morbid (severe) obesity due to excess calories; Z68.42 Body mass index [BMI] 45.0-49.9, adult | CPT/HCPCS: 97802 ==

== ENCOUNTER 2025-01-09 08:21 | Outpatient (RCR) | payer OTHER, SELFPAY | END 2025-01-13 23:59 | LOC: NS 08:21 | PROVIDERS: PCP Family Medicine; Referring Provider Obstetrics & Gynecology; Visit Provider Obstetrics & Gynecology | DX: Z71.3 Dietary counseling and surveillance (principal); E66.01 Morbid (severe) obesity due to excess calories; Z68.42 Body mass index [BMI] 45.0-49.9, adult | CPT/HCPCS: 97803 ==

== ENCOUNTER 2025-03-13 08:21 | Outpatient (RCR) | payer OTHER, SELFPAY | END 2025-03-15 23:59 | LOC: NS 08:21 | PROVIDERS: PCP Family Medicine; Referring Provider Obstetrics & Gynecology; Visit Provider Obstetrics & Gynecology | DX: Z71.3 Dietary counseling and surveillance (principal); E66.01 Morbid (severe) obesity due to excess calories; Z68.42 Body mass index [BMI] 45.0-49.9, adult | CPT/HCPCS: 97803 ==

== ENCOUNTER 2025-03-29 08:26 | Outpatient (RCR) | payer OTHER, SELFPAY | END 2025-04-15 23:59 | LOC: NS 08:26 | PROVIDERS: PCP Family Medicine; Referring Provider Obstetrics & Gynecology; Visit Provider Obstetrics & Gynecology | DX: Z71.3 Dietary counseling and surveillance (principal); E66.01 Morbid (severe) obesity due to excess calories; Z68.42 Body mass index [BMI] 45.0-49.9, adult | CPT/HCPCS: 97803 ==

== ENCOUNTER → 2025-04-18 | Outpatient (CLI) | payer OTHER, SELFPAY | END | disposition home or self-care (01) | PROVIDERS: PCP Family Medicine; Referring Provider Nurse Practitioner Family; Visit Provider Nurse Practitioner Family | DX: E28.2 Polycystic ovarian syndrome (principal) | CPT/HCPCS: 36415; 82627; 82626 ==

== ENCOUNTER → 2025-04-26 | Outpatient (CLI) | payer OTHER, SELFPAY ==
--- NOTE | 2025-04-26 17:46 | US_ITS ---
PROCEDURE: PELVIC W/ TRANSVAGINAL REASON FOR EXAM: PCOS TECHNIQUE: Transabdominal and transvaginal pelvic ultrasound COMPARISON: Prior study dated November 26, 2024. FINDINGS: LMP: April 13, 2025. Measurements: Uterus: 9.2 cm x 5 cm x 3.3 cm with a volume of 79.2 mL Endometrial Thickness: 12 mm Right Ovary: 3.3 cm x 2.5 cm x 2.2 cm with a volume of 6.4 mL. Left Ovary: 3.6 cm x 2.6 cm x 2.6 cm with a volume of 7.58 mL. TRANSABDOMINAL: Uterus: Normal size, myometrial echotexture, and contour. Endometrium: Endometrium measures 12 mm and is hyperechoic. This may be related to the patient's menstrual cycle. Right ovary: Normal size and echotexture. Left ovary: Normal size and echotexture. Other: No large pelvic mass identified. Transvaginal sonography was performed to better visualize the endometrium. TRANSVAGINAL: Uterus: Anteverted. Endometrium: Homogeneously thickened. Right ovary: Normal size and echotexture. Left ovary: Normal size and echotexture. Other adnexal findings: None. Cul-de-sac: No free intraperitoneal fluid identified. Tenderness: No tenderness US/Pelvic w/ Transvaginal IMPRESSION: NORMAL TRANSABDOMINAL AND TRANSVAGINAL PELVIC ULTRASOUND. Reading Location: [place] [id number]
== END | disposition home or self-care (01) ==
LOC: US 17:48
PROVIDERS: PCP Family Medicine; Referring Provider Nurse Practitioner Family; Visit Provider Nurse Practitioner Family
DX: E28.2 Polycystic ovarian syndrome (principal)
CPT/HCPCS: 76830; 76856

== ENCOUNTER 2025-05-02 09:22 | Outpatient (RCR) | payer OTHER, SELFPAY | END 2025-05-15 23:59 | LOC: NS 09:22 | PROVIDERS: PCP Family Medicine; Referring Provider Obstetrics & Gynecology; Visit Provider Obstetrics & Gynecology | DX: Z71.3 Dietary counseling and surveillance (principal); E66.01 Morbid (severe) obesity due to excess calories; Z68.42 Body mass index [BMI] 45.0-49.9, adult | CPT/HCPCS: 97803 ==

== ENCOUNTER → 2025-08-16 | Outpatient (CLI) | payer OTHER, SELFPAY ==
[2025-08-16 11:28] LABS: Hematocrit 44.8 % (37-47); Hemoglobin 14.9 g/dL (12.0-15.0); Immature Granulocytes Count 0.060 X10^3/uL (0.0-0.0); Mean Corp Hgb Conc 33.3 g/dL (32-36); Mean Corpuscular Volume 92.0 fL (81-99); Mean Platelet Vol. 11.1 fl (6.2-12.0); NRBC Flagged by Analyzer 0 % (0-5); Platelet Count 237 K/mm3 (150-450); RBC Distribution Width CV 14.6 % (11.6-14.6); RBC Distribution Width SD 48.8 fl (35.1-43.9); Red Blood Count 4.87 M/mm3 (4.2-5.4); White Blood Count 9.0 K/mm3 (4.4-11.0)
[2025-08-16 12:03] LABS: AST(SGOT) 20 U/L (<=31); Alanine Aminotransfer ALT/SGPT 21 U/L (<=34); Albumin, Serum 4.1 g/dL (3.5-5.0); Alkaline Phosphatase 62 U/L (35-104); Anion Gap 12 (5-15); BUN 13 mg/dL (4-19); BUN/Creat Ratio 17.4 RATIO (10-20); Calcium,Total 8.9 mg/dL (7.6-11.0); Carbon Dioxide 23.2 mmol/L (21.0-32.0); Chloride 106 mmol/L (98-108); Globulin 3.1 g/dL (2.2-4.2); Glucose 80 mg/dL (70-99); Potassium 4.0 mmol/L (3.3-5.1)
[2025-08-16 12:24] LABS: Cholesterol 140 mg/dL (<=200); Low Density Lipoprotein Calc. 68 mg/dL; Triglycerides 205 mg/dL; Very Low Density Lipoprotein 41 mg/dL (5-40); cholesterol:hdl ratio screen 4.58
== END | disposition home or self-care (01) ==
LOC: LAB 10:09
PROVIDERS: PCP Family Medicine; Visit Provider Family Medicine
DX: Z00.00 Encounter for general adult medical examination without abnormal findings (principal); E28.2 Polycystic ovarian syndrome
CPT/HCPCS: 36415; 80053; 80061; 83036; 84443; 85025